=== PATIENT | male | born 2000 | race Caucasian/White ===

== ENCOUNTER 2024-07-14 13:58 | Emergency (ER) | payer OTHER ==
[2024-07-14] MEDS ORDERED: diphenhydrAMINE 50 MG/ML VIAL ONE (17:33)
[2024-07-14] MEDS ORDERED: Ketorolac Tromethamine 30 MG (1 mL) VIAL ONE (17:34)
[2024-07-14] MEDS ORDERED: Prochlorperazine 10 MG/2 ML VIAL ONE (17:34)
== END 2024-07-14 18:44 | disposition home or self-care (01) ==
LOC: CSHERS 13:58
DX: G43.909 Migraine, unspecified, not intractable, without status migrainosus (principal)
CPT/HCPCS: 96374; 96375; J0780; J1200; J1885